=== PATIENT | female | born 1985 | race Two or more races ===

== ENCOUNTER 2017-08-02 14:16 | Emergency (ER) | payer OTHER ==
[~2017-08-02] VITALS: Ht 162.6 cm; Wt 59.0 kg
[2017-08-02] MEDS ORDERED: Bacitracin Oint UD TOPIC ONE (15:15)
[2017-08-02] MEDS ORDERED: NS Irrig 1000ml 1,000 ML IRRIG ONE (15:15)
--- NOTE | 2017-08-02 15:15 | Emergency Room Report ---
History of Present Illness General Chief Complaint: Laceration Source: Patient Present Illness HPI 32-year-old female presents to the emergency department complaining of 2 lacerations to the fingers of her right hand the fourth digit, reports localized 8/10 in severity aching pain and some bleeding. Patient without work and she was carrying a plate when she knocked the plate into the refrigerator door and cut her finger on a large sharp edge of the plate. Patient denies taking blood thinning medications. She denies skin color changers to the affected extremities. Pt UTD with tetanus within this past year. She denies possibility of small fragment/foreign body from a broken dish. Denies numbness tingling or loss of sensation or gross motor movements of the extremities, incontinence of bowel or bladder. Denies CP, Palpitations, LOC, AMS, dizziness, Changes in Vision, Sensation, paresthesias, or a sudden severe headache. Allergies: Coded Allergies: No Known Allergies (Unverified , 08/02/17) Patient History Past Medical History: see triage record Past Surgical History: none Pertinent Family History: none Last Menstrual Period: 07/19/17 Now: No : 0 Para: 0 Immunizations: UTD Reviewed Nursing Documentation: PMH: Agreed, PSxH: Agreed Nursing Documentation-PMH Past Medical History: No Stated History Review of Systems All Other Systems: negative except mentioned in HPI Physical Exam Vital Signs Date Time Temp Pulse Resp B/P (MAP) Pulse Ox O2 Delivery O2 Flow Rate FiO2 08/02/17 14:44 98.1 79 16 120/74 99 Room Air Sp02 EP Interpretation: reviewed, normal General Appearance: no apparent distress, alert, GCS 15, non-toxic Head: normocephalic, atraumatic Eyes: bilateral eye normal inspection, bilateral eye PERRL ENT: hearing grossly normal, normal voice Neck: full range of motion Respiratory: lungs clear, normal breath sounds, speaking full sentences Cardiovascular #1: regular rate, rhythm, normal capillary refill Musculoskeletal: back normal, gait/station normal, normal range of motion, non- tender Neurologic: alert, oriented x3, responsive, motor strength/tone normal, sensory intact, speech normal Skin: normal color, no rash, warm/dry, well hydrated, laceration - Two finger lacerations the right 5th digit 3.5 cm linear laceration to the palmar surface, and the right 4th digit has a 2cm linear laceration to the palmar surface, no obvious FB Procedures Laceration/Wound Repair Laceration/Wound Repair #1: Consent: Verbal Wound Location: upper extremity - right 5th digit Wound's Depth, Shape: linear Wound Length (cm): 3 Wound Explored: clean Irrigated w/ Saline (ccs): 500 Anesthesia: 1% Lidocaine Volume Anesthetic (ccs): 4 Wound Debrided: minimal Wound Repaired With: sutures Suture Size/Type: 5:0 Number of Sutures: 5 Layer Closure?: No Sterile Dressing Applied?: Yes Splint Applied?: Yes Type of Splint Applied: Finger splint Sling Applied?: No Patient Tolerated: Well Complications: None Laceration/Wound Repair #2: Consent: Verbal Wound Location: upper extremity - right 4th digit Wound's Depth, Shape: linear Wound Length (cm): 2 Wound Explored: clean Irrigated w/ Saline (ccs): 500 Anesthesia: 1% Lidocaine Volume Anesthetic (ccs): 4 Wound Debrided: minimal Wound Repaired With: sutures Suture Size/Type: 5:0 Number of Sutures: 3 Layer Closure?: No Sterile Dressing Applied?: Yes Splint Applied?: Yes Type of Splint Applied: figner splint Sling Applied?: No Patient Tolerated: Well Complications: None Medical Decision Making PA Attestation Dr. Kerr is my supervising Physician whom patient management has been discussed with. Diagnostic Impression: Primary Impression: Laceration ER Course Pt. presents to the ED c/o lacerations to the right 4th and 5th digit. Ddx considered but are not limited to laceration, tendon injury, cellulitis, amputation Vital signs: are WNL, pt. is afebrile H&PE are most consistent with: Two finger lacerations the right 5th digit 3.5 cm linear laceration to the palmar surface, and the right 4th digit has a 2cm linear laceration to the palmar surface, no obvious FB ORDERS: none required at this time, the diagnosis is clinical ED INTERVENTIONS: - The wound was copiously irrigated with normal saline, and explored for foreign body for which no FB was found. - pt. is anesthetized with 1%lidocaine using digital block technique - The right 5th digit's wound was approximated and closed using 5 interrupted 5.0 Prolene sutures. -- The right 4th digit's wound was approximated and closed using 3 interrupted 5.0 Prolene sutures. -Bacitracin and sterile dressing is applied. - Finger Splint applied to the right 5th finger by desktop support technician. Pt. remains neurovascularly intact. -- Finger Splint applied to the right 4th finger by desktop support technician. Pt. remains neurovascularly intact. Discussed with patient: That we make every effort to approximate the laceration as best as we can so that scarring will be as cosmetically pleasing as possible with our limited cosmetic skill set in the Emergency dept. Regardless of our best efforts there will be scarring after laceration repair. The extent of scarring is unknown at this time. DISCHARGE: At this time pt. is stable for d/c to home. Will provide printed patient care instructions, and any necessary prescriptions. Care plan and follow up instructions have been discussed with the patient prior to discharge. Last Vital Signs Date Time Temp Pulse Resp B/P (MAP) Pulse Ox O2 Delivery O2 Flow Rate FiO2 08/02/17 14:44 98.1 79 16 120/74 99 Room Air Disposition: HOME, SELF-CARE Condition: Stable Scripts Bacitracin/Polymyxin B Sulfate (BACITRACIN-POLYMYXIN OINTMENT) 28.35 Gm Oint...g. 1 APPLIC TP BID, #28.3 GM Prov: Adenike Maldonado 08/02/17 Cephalexin* (KEFLEX*) 500 Mg Capsule 500 MG ORAL EVERY 12 HOURS for 7 Days, #14 CAP 0 Refills Prov: Adenike Maldonado 08/02/17 Departure Forms: Return to Work Return to Work Date: Aug 04, 2017 Work Restrictions: No Heavy Lifting Other Restrictions: limited use of right hand, keep clean and dry Return to Full Activity: Aug 11, 2017 Patient Instructions: Laceration Care, Adult Additional Instructions: Take medications as directed. SUTURE REMOVAL IN 10 DAYS* Follow up with a Primary Care Provider in 3-5 days, even if your symptoms have resolved. --Please review list of primary care clinics, if you do not already have a primary care provider Return sooner to ED if new symptoms occur, or current symptoms become worse. - Please note that this Emergency Department Report was dictated using [employer] inspector technology software, occasionally this can lead to erroneous entry secondary to interpretation by the dictation equipment. Adenike Maldonado Aug 02, 2017 15:15
[2017-08-02] MEDS ORDERED: CEPHALEXIN500 MG ORAL (15:29)
[2017-08-02] MEDS ORDERED: BACITRACIN-P28.35 GM TP (15:30)
[2017-08-02] MEDS ORDERED: Lidocaine 1% MPF 10mg/ml 5ml IM ONE (15:45)
[2017-08-02 19:20] VITALS: BP 120/74
[2017-08-02 19:23] VITALS: BP 120/74
== END 2017-08-02 16:45 | disposition home or self-care (01) ==
LOC: EMR 14:58
DX: S61.214A Laceration without foreign body of right ring finger without damage to nail, initial encounter (principal); S61.216A Laceration without foreign body of right little finger without damage to nail, initial encounter; W26.8XXA Contact with other sharp object(s), not elsewhere classified, initial encounter; Y92.89 Other specified places as the place of occurrence of the external cause
CPT/HCPCS: 29130; 99283

== ENCOUNTER 2017-08-12 16:14 | Emergency (ER) | payer OTHER ==
[~2017-08-12] VITALS: Ht 157.5 cm; Wt 63.5 kg
[~2017-08-12 16:14] MED LIST: BACITRACIN-P28.35 GM TP; CEPHALEXIN500 MG ORAL
[2017-08-12] MEDS ORDERED: NKM (16:23)
--- NOTE | 2017-08-12 16:30 | Emergency Room Report ---
History of Present Illness General Chief Complaint: Wound Recheck/Suture Removal Source: Patient Present Illness HPI 32-year-old female presents to the emergency department complaining of sutures in the right fourth and fifth fingers x10 days that need removal. Status post wound closure 10 days ago. Patient denies erythema, discharge, tenderness, fevers or chills. Patient denies bleeding. Patient is up-to-date with all her vaccinations. Allergies: Coded Allergies: No Known Allergies (Unverified , 08/02/17) Patient History Past Medical History: see triage record Past Surgical History: none Pertinent Family History: none Last Menstrual Period: 07/13/17 Immunizations: UTD Reviewed Nursing Documentation: PMH: Agreed, PSxH: Agreed Nursing Documentation-PMH Past Medical History: No Stated History Review of Systems All Other Systems: negative except mentioned in HPI Physical Exam Vital Signs Date Time Temp Pulse Resp B/P (MAP) Pulse Ox O2 Delivery O2 Flow Rate FiO2 08/12/17 16:20 97.9 70 18 123/77 100 Room Air Sp02 EP Interpretation: reviewed, normal General Appearance: no apparent distress, alert, GCS 15, non-toxic Head: normocephalic, atraumatic Eyes: bilateral eye normal inspection ENT: hearing grossly normal, normal voice Neck: full range of motion Respiratory: lungs clear, normal breath sounds, speaking full sentences Cardiovascular #1: regular rate, rhythm Musculoskeletal: back normal, gait/station normal, normal range of motion, non- tender Neurologic: alert, oriented x3, responsive, motor strength/tone normal, sensory intact, speech normal Skin: normal color, no rash, warm/dry, well hydrated, wd healing/no infection noted - of the right 4th and 5th digits, sutures in place, no evidence of infection. Medical Decision Making PA Attestation Dr. Corbett is my supervising Physician whom patient management has been discussed with. Diagnostic Impression: Primary Impression: Encounter for removal of sutures ER Course 32-year-old female presents to the emergency department complaining of sutures in the right fourth and fifth fingers x10 days that need removal. Status post wound closure 10 days ago. Patient denies erythema, discharge, tenderness, fevers or chills. Patient denies bleeding. Patient is up-to-date with all her vaccinations. Ddx considered but are not limited to laceration, tendon injury, cellulitis, dehiscence. Vital signs: are WNL, pt. is afebrile H&PE are most consistent with: healed laceration of the right 4th and 5th digits. ORDERS: none required at this time, the diagnosis is clinical ED INTERVENTIONS: - 8 Sutures removed. DISCHARGE: At this time pt. is stable for d/c to home. Will provide printed patient care instructions, and any necessary prescriptions. Care plan and follow up instructions have been discussed with the patient prior to discharge. Last Vital Signs Date Time Temp Pulse Resp B/P (MAP) Pulse Ox O2 Delivery O2 Flow Rate FiO2 08/12/17 16:20 97.9 70 18 123/77 100 Room Air Disposition: HOME, SELF-CARE Condition: Stable Patient Instructions: Suture Removal, Care After Additional Instructions: Follow up with a Primary Care Provider in 3-5 days, even if your symptoms have resolved. Return sooner to ED if new symptoms occur, or current symptoms become worse. - Please note that this Emergency Department Report was dictated using [employer] software developer technology software, occasionally this can lead to erroneous entry secondary to interpretation by the dictation equipment. Adenike Maldnoado Aug 12, 2017 16:30
[2017-08-12 16:41] VITALS: BP 123/77
[2017-08-12 16:54] VITALS: BP 120/66
== END 2017-08-12 16:55 | disposition home or self-care (01) ==
LOC: EMR 16:35
DX: Z48.02 Encounter for removal of sutures (principal)
CPT/HCPCS: 99281; 99291